=== PATIENT | male | born 1965 | race Caucasian/White ===

== ENCOUNTER 2018-04-04 05:34 | Outpatient (CLI) | payer OTHER ==
[~2018-04-04] VITALS: Ht 175.3 cm; Wt 107.5 kg
[2018-04-04] MEDS ORDERED: ATEN50TA PO (15:03)
[2018-04-04] MEDS ORDERED: BENA40TA5 PO (15:10)
== END 2018-04-04 15:11 | disposition home or self-care (01) ==
LOC: PREOP 05:34
PROVIDERS: ATTEND Surgery
DX: Z01.818 Encounter for other preprocedural examination (principal)

== ENCOUNTER 2018-04-11 07:38 | Day surgery (SDC) | payer OTHER ==
[~2018-04-11] VITALS: Ht 175.3 cm; Wt 107.5 kg
[~2018-04-11 07:38] MED LIST: ATEN50TA PO; BENA40TA5 PO
[2018-04-11] MEDS ORDERED: NS IV 500 ML 500 ML ONE (07:48)
[2018-04-11 07:50] VITALS: BP 147/78
[2018-04-11] MEDS ORDERED: NS IV 500 ML 500 ML IV PRN (07:51)
--- NOTE | 2018-04-11 08:07 | Conscious Sedation/ASA ---
Conscious Sedation Pre-Proced Time Reviewed: 08:07 ASA Class: 2 Airway Mallampati Classification: ([place]hanok appropriate class) I. II. III, IV Lungs Heart ASA score ASA 1: a normal healthy patient ASA 2: a patient with a mild systemic disease (mid diabetes, controlled hypertension, obesity ASA 3: a patient with a severe systemic disease that limits activity (angina , COPD, prior Myocardial infarction) ASA 4: a patient with an incapacitating disease that is a constant threat to life (CHF, renal failure) ASA 5: a moribund patient not expected to survive 24 hrs. (ruptured aneurysm) ASA 6: a declared brain patient whose organs are being harvested. For emergent operations, add the letter E after the classification Grade 1 Sedation Plan: Discussed options with patient/fam Note The patient is an appropriate candidate to undergo the planned procedure, sedation, and anesthesia. The patient immediately re-assessed prior to indication. ONEL AKHTAR MD Apr 11, 2018 8:07 am
--- NOTE | 2018-04-11 08:07 | History & Physicial ---
History of Present Illness History of Present Illness Reason for visit/HPI To undergo screening colonoscopy. F.H of colon cancer and a personal H/O polyps Date of Admission 04/11/18 Date Seen by Provider: Apr 11, 2018 Time Seen by Provider: 08:03 I consulted on this patient on 04/11/18 08:02 Attending Physician Onel Crook MD Admitting Physician Casey Wills MD Consult Allergies and Home Medications Allergies Coded Allergies: No Known Drug Allergies (Unverified , 02/23/11) Home Medications Atenolol 50 Mg Tablet, 75 MG PO DAILY, (Reported) take 1 1/2 of 50mg tab Benazepril HCl 40 Mg Tab, 40 MG PO DAILY, (Reported) Patient Home Medication List Home Medication List Reviewed: Yes Past Qydkorx-Ddwqis-Okhedb Hx Patient Social History Marrital Status: Employed/Student: employed Type Used: Cigarettes Recent Foreign Travel: No Contact w/other who traveled: No Recent Hopitalizations: No Seasonal Allergies Seasonal Allergies: Yes (at times) Surgeries No Respiratory No Cardiovascular Yes Hypertension Neurological No Genitourinary No Gastrointestinal No Musculoskeletal No Endocrine History of Endocrine Disorders: No HEENT History of HEENT Disorders: No Cancer No Psychosocial History of Psychiatric Problem: No Reviewed Nursing Assessment Reviewed/Agree w Nursing PMH: Yes Family Medical History Significant Family History: Cancer Constitutional: no symptoms reported EENTM: no symptoms reported Respiratory: no symptoms reported Cardiovascular: no symptoms reported Gastrointestinal: no symptoms reported Genitourinary: no symptoms reported Musculoskeletal: no symptoms reported Skin: no symptoms reported Psychiatric/Neurological: No Symptoms Reported Physical Exam Vital Signs Capillary Refill : Height, Weight, BMI Height: 5'9.00" Weight: 237lbs. 0.0oz. [id number]; 35.0 BMI Method: General Appearance: No Apparent Distress Neck: Normal Inspection Respiratory: Lungs Clear Cardiovascular: Regular Rate, Rhythm Gastrointestinal: Non Tender, Soft Rectal: Deferred Extremity: Normal Inspection Neurologic/Psychiatric: Alert, Oriented x3 Skin: Warm/Dry Assessment/Plan Assessment and Plan Gentleman to undergo screening colonoscopy Admission Diagnosis Admission Status: Other (Outpt Proc) ONEL CROOK MD Apr 11, 2018 8:07 am
[2018-04-11] MEDS ORDERED: fentaNYL INJECTION 100 MCG/2 ML AMP ONE ×2 (08:14)
[2018-04-11] MEDS ORDERED: MIDAZOLAM 2 MG/2 ML (VERSED) VIAL ONE ×3 (08:14)
[2018-04-11] MEDS: fentaNYL INJECTION 100 MCG/2 ML AMP IVP PRN ×2 (08:18→08:24)
[2018-04-11] MEDS: MIDAZOLAM 2 MG/2 ML (VERSED) VIAL IVP PRN ×2 (08:20→08:23)
--- NOTE | 2018-04-11 08:34 | Endo Procedure Record ---
Endo Procedure Report Date of Procedure Last Colonoscopy: Yes Apr 11, 2018 Surgeon (s) ONEL AKHTAR MD Post Procedure/Op Diagnosis sigmoid diverticulosis Procedure Performed colonoscopy to cecum Description of Procedure Anesthesia Type: Conscious Sedation Specimen(s) collected/removed none Description of the Procedure Indication for the procedure: This gentleman, with a family history of colon cancer and a personal history of polyps in the past, came in for screening colonoscopy. Informed consent was obtained after reviewing the procedure in detail. Description of procedure: He was placed in left lateral rectus position and his vital signs were monitored. Conscious sedation was achieved using Versed and fentanyl. Digital rectal examination was unremarkable. The colonoscope was then introduced in the rectum and advanced all the way up to the cecum. The scope was then withdrawn slowly and the mucosa examined in a systematic fashion. Finding: Sigmoid diverticulosis. He tolerated the procedure well and was taken back to the nursing area in a stable condition. Impression: Screening colonoscopy. No polyps. Positive family history. Recommend repeating in 5 years. Copy Copies To 1: MISAEL LYNN MD, XAVIER M MD Apr 11, 2018 8:34 am
--- NOTE | 2018-04-11 08:35 | Discharge Inst-Simple/Standard ---
Discharge Inst-Standard Discharge Medications New, Converted or Re-Newed RX: Other Patient Instructions/Follow Up Plan of Care/Instructions/FU: repeat colonoscopy in 5 Activity as Tolerated: Yes Discharge Diet: No Restrictions ONEL AKHTAR MD Apr 11, 2018 8:35 am
[2018-04-11] MEDS ORDERED: OMEG-33 PO (08:40)
[2018-04-11] MEDS ORDERED: CHOL20002 PO (08:40)
[2018-04-11] MEDS ORDERED: CALC200T50 PO (08:42)
[2018-04-11] MEDS ORDERED: VITAMIN B12 INJ (08:42)
[2018-04-11 09:00] VITALS: BP 116/72
[2018-04-11 09:20] VITALS: BP 129/97
[2018-04-11 09:25] VITALS: BP 129/97
== END 2018-04-11 09:25 | disposition home or self-care (01) ==
LOC: ENDO 07:38
PROVIDERS: ATTEND Surgery
DX: Z12.11 Encounter for screening for malignant neoplasm of colon (principal); K57.30 Diverticulosis of large intestine without perforation or abscess without bleeding; I10 Essential (primary) hypertension; Z79.899 Other long term (current) drug therapy

== ENCOUNTER → 2020-03-08 | Outpatient (CLI) | payer OTHER ==
[~2020-03-08] MED LIST changes: +CALC200T50 PO; +CHOL20002 PO; +OMEG-33 PO; +VITAMIN B12 INJ
--- NOTE | 2020-03-08 10:41 | Diagnostic Imaging Report ---
PROCEDURE: MRI lumbar spine. TECHNIQUE: Multiplanar, multisequence MRI of the lumbar spine was performed without contrast. INDICATION: Chronic low back pain. No relevant comparisons. FINDINGS: Lumbar vertebral statures are normal and the alignment is anatomic. No appreciable spondylolysis defect. No marrow edema. The lower thoracic cord, the conus and the nerves of the cauda equina unremarkable. There was no paravertebral mass, hemorrhage or fluid collection. T12-L1: Minimal anterior osteophyte disc material at this level results in no stenosis. L1-L2: There is disc desiccation and mild disc stature loss. Osteophyte disc material is predominantly directed anteriorly with no significant canal, foraminal or recess stenosis. The L2-L3 and the L3-L4 levels and discs were normal with no stenosis. L4-L5: There is hypertrophic facet arthrosis. There is thickening of ligamenta flava. There is bulging desiccated disc material posteriorly indenting the ventral thecal sac and in conjunction with posterior element hypertrophy resulting in tzqe-ap-uklxbeds degree of canal stenosis. There is moderate to severe right and tccy-ej-qyhtwnil left neural foraminal narrowing. L5-S1: Some T2 hyperintense signal along the margins of the bulging disc posteriorly likely annular tearing. There is a mild degree of left and moderate right neural foraminal stenosis. Osteophyte disc material effaces the ventral epidural fat and minimally indents the ventral thecal sac. There is borderline mild degree of canal narrowing. IMPRESSION: 1. Degenerative changes to the discs, endplates and posterior elements result in multilevel stenoses greatest at the right neural foramen L4-L5 but other substantial stenoses listed level by level above. 2. Normal alignment. No acute bony abnormality. Dictated by: Dictated on workstation # [id number]
== END ==
LOC: RAD 07:33
DX: M51.17 Intervertebral disc disorders with radiculopathy, lumbosacral region (principal); M48.07 Spinal stenosis, lumbosacral region; M25.78 Osteophyte, vertebrae; M47.26 Other spondylosis with radiculopathy, lumbar region
CPT/HCPCS: 72148

== ENCOUNTER 2020-04-18 14:20 | Outpatient (RCR) | payer OTHER | END 2020-04-18 16:30 | disposition home or self-care (01) | PROVIDERS: ATTEND Nurse Practitioner Family | DX: M54.16 Radiculopathy, lumbar region (principal); I10 Essential (primary) hypertension ==

== ENCOUNTER 2020-04-23 14:09 | Emergency (ER) | payer OTHER ==
[~2020-04-23] VITALS: Ht 175 cm; Wt 103.0 kg
--- NOTE | 2020-04-23 14:33 | NUR ---
RETURNED TO NURSE STATION AFTER TRIAGE AND HAD A NOTE TO UPDATE PT'S JIMMY. I WENT BACK TO THE ROOM BECAUSE THE PT HAD TOLD ME THAT HE WAS TEXTING HER AND I ASKED IF HE WANTED ME TO CALL HER. PT SAID NO THAT HE WOULD CONTACT HER AFTER THE DR SAW HIM.
[2020-04-23] MEDS ORDERED: fentaNYL INJECTION 100 MCG/2 ML AMP IVP ONE (14:45)
--- NOTE | 2020-04-23 14:48 | ED Trauma-Multisystem ---
General Chief Complaint: Chest Wall Stated Complaint: UPPER ABD/CHEST PAIN;INJURY Nursing Triage Note: PT STATES HE WAS LOADING A ZTR MOWER ON THE BACK OF A FLAT BED TRUCK AND IT ROLLED OVER ON HIM, CC OF RT RIB PAIN, PT [facility] BUT THEY COULDN'T TELL IF ANYTHING WAS BROKE, SUGGESTED A CT SCAN HERE. Source of Information: Patient Exam Limitations: No Limitations History of Present Illness Date Seen by Provider: Apr 23, 2020 Time Seen by Provider: 14:43 Initial Comments To [facility] with c/o ruq abdominal pain after a towel stretcher that he was loading into a truck rolled back onto him. Occurred: Just Prior to Arrival Severity: Moderate Pain/Injury Location: Other (torso) Method of Injury: Direct Blow Modifying Factors: No Movement Loss of Consciousness: No Loss of Consciousness Allergies and Home Medications Allergies Coded Allergies: No Known Drug Allergies (Verified , 04/11/18) Home Medications Atenolol 50 Mg Tablet, 75 MG PO DAILY, (Reported) take 1 1/2 of 50mg tab Benazepril HCl 40 Mg Tab, 40 MG PO DAILY, (Reported) Calcium Citrate 200 Mg Tablet, 200 MG PO DAILY, (Reported) Cholecalciferol (Vitamin D3) 2,000 Unit Capsule, 2,000 UNIT PO DAILY, (Reported) [place]-3/Dha/Epa/Fish Oil 1 Each Capsule, 1 EACH PO DAILY, (Reported) [Vitamin B12] , INJ MONTHLY, (Reported) Patient Home Medication List Home Medication List Reviewed: Yes Review of Systems Review of Systems Constitutional: see HPI Eyes: No Symptoms Reported Ears: No Symptoms Reported Nose: No Symptoms Reported Mouth: No Symptoms Reported Throat: No Symptoms to Report Respiratory: no symptoms reported Cardiovascular: No Symptoms Reported Genitourinary: no symptoms reported Musculoskeletal: no symptoms reported Skin: no symptoms reported Psychiatric/Neurological: No Symptoms Reported Past Plbtena-Dvdxum-Eblwgx Hx Patient Social History Alcohol Use: Occasionally Uses Alcohol Beverage of Choice: Beer Recreational Drug Use: No Smoking Status: Current Someday Smoker Type Used: Pipe Recent Foreign Travel: No Contact w/Someone Who Travel: No Recent Infectious Disease Expo: No Recent Hopitalizations: No Physical Abuse: No Sexual Abuse: No Mistreated: No Fear: No Seasonal Allergies Seasonal Allergies: Yes (at times) Past Medical History Surgeries: Yes (GASTRIC BYPASS) Abdominal Respiratory: No Cardiac: Yes ("LEAKING VALVE") Hypertension Neurological: No Genitourinary: No Gastrointestinal: No Musculoskeletal: Yes Degenerate Disk Disease Endocrine: No HEENT: No Cancer: No Psychosocial: No Integumentary: No Blood Disorders: No Family Medical History Cancer Physical Exam Vital Signs Vital Signs - First Documented 04/23/20 14:16 Temp 36.8 Pulse 55 Resp 20 B/P (MAP) 134/94 (107) Pulse Ox 98 O2 Delivery Room Air Height, Weight, BMI Height: 5'9.00" Weight: 237lbs. 0.0oz. 107.312037fi; 33.00 BMI Method: General Appearance: No Apparent Distress, WD/WN Eyes: Bilateral Eye Normal Inspection, Bilateral Eye PERRL, Bilateral Eye Abnormal EOM Neck: Full Range of Motion, Normal Inspection Cardiovascular: Regular Rate, Rhythm, Normal Peripheral Pulses Respiratory: No Accessory Muscle Use, No Respiratory Distress Gastrointestinal: Normal Bowel Sounds, Soft, Other (tender to palpation right anterior abdomen lower ribs ) Extremity: Normal Capillary Refill, Normal Inspection Neurologic/Psychiatric: Alert, Oriented x3 Angelic Coma Score Best Eye Response ([place]): (4) Open Spontaneously Best Verbal Response ([place]): (5) Oriented Best Motor Response (Angelic): (6) Obeys Commands Angelic Total: 15 Progress/Results/Core Measures Results/Orders Lab Results Laboratory Tests Test 04/23/20 15:00 Range/Units White Blood Count 8.5 4.3-11.0 10^3/uL Red Blood Count 5.17 4.35-5.85 10^6/uL Hemoglobin 14.1 13.3-17.7 G/DL Hematocrit 42 40-54 % Mean Corpuscular Volume 81 80-99 FL Mean Corpuscular Hemoglobin 27 25-34 PG Mean Corpuscular Hemoglobin Concent 34 32-36 G/DL Red Cell Distribution Width 15.4 H 10.0-14.5 % Platelet Count 221 130-400 10^3/uL Mean Platelet Volume 10.4 7.4-10.4 FL Neutrophils (%) (Auto) 82 H 42-75 % Lymphocytes (%) (Auto) 11 L 12-44 % Monocytes (%) (Auto) 6 0-12 % Eosinophils (%) (Auto) 1 0-10 % Basophils (%) (Auto) 0 0-10 % Neutrophils # (Auto) 7.0 1.8-7.8 X 10^3 Lymphocytes # (Auto) 0.9 L 1.0-4.0 X 10^3 Monocytes # (Auto) 0.5 0.0-1.0 X 10^3 Eosinophils # (Auto) 0.1 0.0-0.3 10^3/uL Basophils # (Auto) 0.0 0.0-0.1 10^3/uL Sodium Level 139 135-145 MMOL/L Potassium Level 4.4 3.6-5.0 MMOL/L Chloride Level 108 H 98-107 MMOL/L Carbon Dioxide Level 21 21-32 MMOL/L Anion Gap 10 5-14 MMOL/L Blood Urea Nitrogen 13 7-18 MG/DL Creatinine 0.92 0.60-1.30 MG/DL Estimat Glomerular Filtration Rate > 60 BUN/Creatinine Ratio 14 Glucose Level 98 70-105 MG/DL Calcium Level 8.7 8.5-10.1 MG/DL Corrected Calcium 8.7 8.5-10.1 MG/DL Total Bilirubin 0.5 0.1-1.0 MG/DL Aspartate Amino Transf (AST/SGOT) 21 5-34 U/L Alanine Aminotransferase (ALT/SGPT) 21 0-55 U/L Alkaline Phosphatase 42 40-136 U/L Total Protein 6.4 6.4-8.2 GM/DL Albumin 4.0 3.2-4.5 GM/DL My Orders Orders - SOLANGE OH APRN Cbc With Automated Diff (04/23/20 14:41) Comprehensive Metabolic Panel (04/23/20 14:41) Ed Iv/Invasive Line Start (04/23/20 14:41) Ct Chest/Abdomen/Pelvis W (04/23/20 14:41) Fentanyl Injection (Sublimaze Injection (04/23/20 14:45) Iohexol Injection (Omnipaque 350 Mg/Ml 1 (04/23/20 15:45) Received Contrast (Hold Metformin- Contr (04/23/20 15:45) Sodium Chloride Flush (Catheter Flush Sy (04/23/20 15:45) Ns (Ivpb) (Sodium Chloride 0.9% Ivpb Bag (04/23/20 15:45) Medications Given in ED Current Medications Medications Dose Ordered Sig/Shanique Route Start Time Stop Time Status Last Admin Dose Admin Fentanyl Citrate 50 mcg ONCE ONCE IVP 04/23/20 14:45 04/23/20 14:46 DC 04/23/20 14:57 50 MCG Iohexol 100 ml ONCE ONCE IV 04/23/20 15:45 04/23/20 15:46 DC 04/23/20 16:28 100 ML Sodium Chloride 10 ml NEEDED PRN IV 04/23/20 15:45 04/23/20 16:28 10 ML Sodium Chloride 100 ml ONCE ONCE IV 04/23/20 15:45 04/23/20 15:46 DC 04/23/20 16:28 80 ML Vital Signs/I&O 04/23/20 04/23/20 14:16 14:57 Temp 36.8 36.8 Pulse 55 Resp 20 B/P (MAP) 134/94 (107) Pulse Ox 98 O2 Delivery Room Air Blood Pressure Mean: 107 Departure Impression Primary Impression: Chest wall contusion Qualified Codes: S20.211A - Contusion of right front wall of thorax, initial encounter Disposition: 01 HOME, SELF-CARE Condition: Stable Departure-Patient Inst. Decision time for Depature: 16:57 Referrals: MISAEL LYNN MD (PCP) Primary Care Physician Patient Instructions: RIB CONTUSION Add. Discharge Instructions: 1. Return to Er for any concerns 2. FOllow up with your doctor next week. Pain medication as directed. All discharge instructions reviewed with patient and/or family. Voiced understanding. SOLANGE OH CHEMICAL MANAGER Apr 23, 2020 14:48
[2020-04-23 15:12] LABS: BASOPHILS % (AUTO) 0 % (0-10); EOSINOPHILS # (AUTO) 0.1 10^3/uL (0.0-0.3); EOSINOPHILS % (AUTO) 1 % (0-10); HEMATOCRIT 42 % (40-54); HEMOGLOBIN 14.1 G/DL (13.3-17.7); LYMPHOCYTES # (AUTO) 0.9 X 10^3 (1.0-4.0); LYMPHOCYTES % (AUTO) 11 % (12-44); MEAN CORPUSCULAR HEMOGLOBIN 27 PG (25-34); MEAN CORPUSCULAR HGB CONC 34 G/DL (32-36); MEAN CORPUSCULAR VOLUME 81 FL (80-99); MEAN PLATELET VOLUME 10.4 FL (7.4-10.4); MONOCYTES # (AUTO) 0.5 X 10^3 (0.0-1.0); MONOCYTES % (AUTO) 6 % (0-12); NEUTROPHILS % (AUTO) 82 % (42-75); PLATELET COUNT 221 10^3/uL (130-400); RED CELL DISTRIBUTION WIDTH 15.4 % (10.0-14.5); WHITE BLOOD COUNT 8.5 10^3/uL (4.3-11.0)
[2020-04-23 15:24] LABS: ALANINE AMINOTRANSFERASE 21 U/L (0-55); ALKALINE PHOSPHATASE 42 U/L (40-136); BILIRUBIN,TOTAL 0.5 MG/DL (0.1-1.0); BUN/CREATININE RATIO 14; CALCIUM 8.7 MG/DL (8.5-10.1); CARBON DIOXIDE 21 MMOL/L (21-32); CHLORIDE 108 MMOL/L (98-107); CREATININE SERUM 0.92 MG/DL (0.60-1.30); GFR ESTIMATED > 60; GLUCOSE 98 MG/DL (70-105); POTASSIUM 4.4 MMOL/L (3.6-5.0); SODIUM 139 MMOL/L (135-145); TOTAL PROTEIN 6.4 GM/DL (6.4-8.2)
--- OUTSIDE RECORDS SUMMARY | 2020-04-23 15:43 | XMS REPORT | Continuity of Care Document ---
Author Organization Unknown Address Unknown Phone Unavailable Allergies Active Description Code Type Severity Reaction Onset Reported/Identified Relationship to Patient Clinical Status Yes No Known Drug Allergies [id number] Drug Allergy Unknown N/A 04/11/2018 Medications There is no data. 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/O PERFORATION OR AB 04/11/2018 ONEL AKHTAR MD Ot Z12.11 ENCOUNTER FOR SCREENING FOR MALIGNANT NE 04/11/2018 ONEL AKHTAR MD Ot Z79.899 OTHER [facility] (CURRENT) DRUG THERAPY 04/12/2018 ONEL AKHTAR MD Ot I1 0 ESSENTIAL (PRIMARY) HYPERTENSION 04/12/2018 ONEL AKHTAR MD Ot 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/O PERFORATION OR AB 04/12/2018 ONEL AKHTAR MD Ot Z12.11 ENCOUNTER FOR SCREENING FOR MALIGNANT NE 04/12/2018 ONEL AKHTAR MD Ot Z79.899 OTHER [facility] (CURRENT) DRUG THERAPY 04/12/2018 ONEL AKHTAR MD Ot I1 0 ESSENTIAL (PRIMARY) HYPERTENSION 04/12/2018 ONEL AKHTAR MD Ot 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/O PERFORATION OR AB 04/12/2018 ONEL AKHTAR MD Ot Z12.11 ENCOUNTER FOR SCREENING FOR MALIGNANT NE 04/12/2018 ONEL AKHTAR MD Ot Z79.899 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 03/11/2020 SHANE MARIN, MISAEL Thomason Ot M25.78 OSTEOPHYTE, VERTEBRAE 03/11/2020 MISAEL LYNN MD Ot M47.26 OTHER SPONDYLOSIS WITH RADICULOPATHY, DONNA 03/11/2020 SHANE MARIN, MISAEL Thomason Ot M48.07 SPINAL STENOSIS, LUMBOSACRAL REGION 03/11/2020 SHANE MARIN, MISAEL Thomason Ot M51.17 INTVRT DISC DISORDERS W RADICULOPATHY, L 03/22/2020 SHANE MARIN, MISAEL Thomason Ot M25.78 OSTEOPHYTE, VERTEBRAE 03/22/2020 SHANE MARIN, MISAEL Thomason Ot M47.26 OTHER SPONDYLOSIS WITH RADICULOPATHY, DONNA 03/22/2020 SHANE MARIN, MISAEL Thomason Ot M48.07 SPINAL STENOSIS, LUMBOSACRAL REGION 03/22/2020 SHANE MARIN, MISAEL Thomason Ot M51.17 INTVRT DISC DISORDERS W RADICULOPATHY, L 03/26/2020 IRMA MAHMOOD MOTORCYCLE ASSEMBLER Ot I1 0 ESSENTIAL (PRIMARY) HYPERTENSION 03/26/2020 ELA IRMA M MOTORCYCLE ASSEMBLER Ot M54.16 RADICULOPATHY, LUMBAR REGION 04/03/2020 IRMA MAHMOOD MOTORCYCLE ASSEMBLER Ot I1 0 ESSENTIAL (PRIMARY) HYPERTENSION 04/03/2020 ELA IRMA M MOTORCYCLE ASSEMBLER Ot M54.16 RADICULOPATHY, LUMBAR REGION 04/03/2020 SHERMAN MAHMOODA M MOTORCYCLE ASSEMBLER Ot I1 0 ESSENTIAL (PRIMARY) HYPERTENSION 04/03/2020 ELA IRMA M MOTORCYCLE ASSEMBLER Ot M54.16 RADICULOPATHY, LUMBAR REGION 04/03/2020 ELA IRMA M MOTORCYCLE ASSEMBLER Ot I1 0 ESSENTIAL (PRIMARY) HYPERTENSION 04/03/2020 ELA IRMA M MOTORCYCLE ASSEMBLER Ot M54.16 RADICULOPATHY, LUMBAR REGION Procedures There is no data. Results Test Result Range Complete blood count (CBC) with automate d white blood cell (WBC) differential - 04/23/20 15:00 Blood leukocytes automated count (number/volume) 8.5 10*3/uL 4.3-11.0 Blood erythrocytes automated count (number/volume) 5.17 10*6/uL 4.35-5.85 Venous blood hemoglobin measurement (mass/volume) 14.1 g/dL 13.3-17.7 Blood hematocrit (volume fraction) 42 % 40-54 Automated erythrocyte mean corpuscular volume 81 [ foz_us] 80-99 Automated erythrocyte mean corpuscular h emoglobin (mass per erythrocyte) 27 pg 25-34 Automated erythrocyte mean corpuscular h emoglobin concentration measurement (mass/volume) 34 g/dL 32-36 Automated erythrocyte distribution width ratio 15. 4 % 10.0- 14.5 Automated blood platelet count (count/volume) 221 10*3/uL 130-400 Automated blood platelet mean volume measurement 10.4 [foz_us] 7.4-10.4 Automated blood neutrophils/100 leukocytes 82 % 42-75 Automated blood lymphocytes/100 leukocytes 11 % 12-44 Blood monocytes/100 leukocytes 6 % 0-12 Automated blood eosinophils/100 leukocytes 1 % 0-10 Automated blood basophils/100 leukocytes 0 % 0-10 Blood neutrophils automated count (number/volume) 7.0 10*3 1.8-7.8 Blood lymphocytes automated count (number/volume) 0.9 10*3 1.0-4.0 Blood monocytes automated count (number/volume) 0. 5 10*3 0.0-1.0 Automated eosinophil count 0.1 10*3/uL 0 .0-0.3 Automated blood basophil count (count/volume) 0.0 10*3/uL 0.0-0.1 Comprehensive metabolic panel - 04/23/20 15:00 Serum or plasma sodium measurement (moles/volume) 139 mmol/L 135-145 Serum or plasma potassium measurement (moles/volume) 4.4 mmol/L 3.6-5.0 Serum or plasma chloride measurement (moles/volume) 108 mmol/L 98-107 Carbon dioxide 21 mmol/L 21-32 Serum or plasma anion gap determination (moles/volume) 10 mmol/L 5-14 Serum or plasma urea nitrogen measurement (mass/volume ) 13 mg/dL 7-18 Serum or plasma creatinine measurement (mass/volume) 0.92 mg/dL 0.60-1.30 Serum or plasma urea nitrogen/creatinine mass ratio 14 NRG Serum or plasma creatinine measurement w ith calculation of estimated glomerular filtration rate > NRG Serum or plasma glucose measurement (mass/volume) 98 mg/dL 70-105 Serum or plasma calcium measurement (mass/volume) 8.7 mg/dL 8.5-10.1 Serum or plasma total bilirubin measurement (mass/volu me) 0.5 mg/dL 0.1-1.0 Serum or plasma alkaline phosphatase jarrett surement (enzymatic activity/volume) 42 U/L 40-136 Serum or plasma aspartate aminotransfera se measurement (enzymatic activity/volume) 21 U/L 5-34 Serum or plasma alanine aminotransferase measurement (enzymatic activity/volume) 21 U/L 0-55 Serum or plasma protein measurement (mass/volume) 6.4 g/dL 6.4-8.2 Serum or plasma albumin measurement (mass/volume) 4.0 g/dL 3.2-4.5 CALCIUM CORRECTED 8.7 mg/dL 8.5-10.1 Encounters ACCT No. Visit Date/Time Discharge Status Pt. Type Provider Facility Loc./Unit Complaint [id number] 04/18/2020 14:20:00 020 23:59:59 CLS Outpatient IRMA MAHMOOD APRN [facility] REHAB LUMBAR RADICULOPATHY [id number] 03/08/2020 07:33:00 020 23:59:59 CLS Outpatient MISAEL LYNN MD [facility] RAD RADICULOPATHY [id number] 04/11/2018 07:38:00 018 09:25:00 DIS Outpatient ONEL AKHTAR MD [facility] ENDO SCREENING [id number] 04/04/2018 05:34:00 018 15:11:00 DIS Outpatient ONEL AKHTAR MD [facility] PREOP COLONOSCOPY [id number] 04/23/2020 15:13:00 Document Registration
[2020-04-23] MEDS ORDERED: CATHETER FLUSH 10 ML SYR IV PRN (15:45)
[2020-04-23] MEDS ORDERED: IOHEXOL 350 MG/ML 100 ML (OMNIPAQUE 350) VIAL IV ONE (15:45)
[2020-04-23] MEDS ORDERED: HOLD METFORMIN - RECEIVED CONTRAST 20 ML VIAL IV SCH (15:45)
[2020-04-23] MEDS ORDERED: NS 100 ML (IVPB) BAG IV ONE (15:45)
[2020-04-23] MEDS ORDERED: HYDR-3870 PO (16:58)
--- NOTE | 2020-04-23 17:04 | Diagnostic Imaging Report ---
PROCEDURE: CT chest, abdomen, and pelvis with contrast. TECHNIQUE: Multiple contiguous axial images were obtained through the chest, abdomen, and pelvis after the administration of intravenous contrast. Auto Exposure Controls were utilized during the CT exam to meet ALARA standards for radiation dose reduction. INDICATION: Trauma, flipped over a lawnmower. COMPARISON: No prior studies are available for comparison. FINDINGS: CT chest: No mediastinal hematoma or great vessel injury is identified. No pericardial or pleural fluid is detected. No pulmonary contusion or pneumothorax is detected. Bony structures appear nonacute. IMPRESSION: Unremarkable CT of the chest. CT abdomen and pelvis: No focal liver or splenic laceration is seen. There are postoperative changes of a gastric bypass surgery. The pancreas is unremarkable. No adrenal mass is detected. No renal injury is detected. Aorta is non-aneurysmal. There is a filter within the inferior vena cava. Bowel loops are normal caliber. There is diverticulosis of the sigmoid and descending colon but no evidence of acute diverticulitis. There is no free fluid or evidence of hemoperitoneum. The bladder is decompressed. Prostate is unremarkable. Bony structures are nonacute. IMPRESSION: No evidence of abdominal or pelvic visceral injury. Dictated by: Dictated on workstation # [id number]
[2020-04-23 17:17] VITALS: BP 155/89
== END 2020-04-23 17:17 | disposition home or self-care (01) ==
LOC: EDUNIT# 14:09 → ER 14:12
DX: S20.211A Contusion of right front wall of thorax, initial encounter (principal); I10 Essential (primary) hypertension; R40.2142 Coma scale, eyes open, spontaneous, at arrival to emergency department; R40.2252 Coma scale, best verbal response, oriented, at arrival to emergency department; R40.2362 Coma scale, best motor response, obeys commands, at arrival to emergency department; F17.290 Nicotine dependence, other tobacco product, uncomplicated; W22.8XXA Striking against or struck by other objects, initial encounter
CPT/HCPCS: 36415; 71260; 74177; 80053; 85025

== ENCOUNTER 2023-06-23 05:40 | Outpatient (CLI) | payer OTHER ==
[~2023-06-23] VITALS: Ht 175.3 cm; Wt 109.8 kg
[~2023-06-23 05:40] MED LIST changes: -BENA40TA5 PO; +BENA40TA84 PO; +CALC200T22 PO; -CALC200T50 PO; +HYDR-3870 PO
[2023-06-28] MEDS ORDERED: ROSU20TA73 PO (12:10)
[2023-06-28] MEDS ORDERED: ATEN50TA PO (12:10)
== END 2023-06-28 12:21 | disposition home or self-care (01) ==
LOC: PREOP 05:40
PROVIDERS: ATTEND Surgery
DX: Z01.818 Encounter for other preprocedural examination (principal)

== ENCOUNTER 2023-07-06 07:17 | Day surgery (SDC) | payer OTHER ==
[~2023-07-06] VITALS: Ht 175 cm; Wt 109.8 kg
[~2023-07-06 07:17] MED LIST changes: +ROSU20TA73 PO
[2023-07-06] MEDS ORDERED: LACTATED RINGERS 1,000 ML 1,000 ML IV STA (07:23)
[2023-07-06 07:40] VITALS: BP 161/99
--- NOTE | 2023-07-06 08:16 | Progress Note-Pre Operative ---
Pre-Operative Progress Note Date H&P Reviewed: Jul 06, 2023 Time H&P Reviewed: 08:16 History & Physical: H&P Reviewed, Patient Examed, No changes noted Pre-Operative Diagnosis: family history of colon cancer UMAIR MOBLEY DO Jul 06, 2023 08:16
--- NOTE | 2023-07-06 08:56 | Anesthesia-General Post-Op ---
MAC Patient Condition Mental Status/LOC: Same as Preop Cardiovascular: Satisfactory Nausea/Vomiting: Absent Respiratory: Satisfactory Pain: Controlled Complications: Absent Post Op Complications Complications None Follow Up Care/Instructions Patient Instructions None needed. Anesthesiology Discharge Order Discharge Order Patient is doing well, no complaints, stable vital signs, no apparent adverse anesthesia problems. No complications reported per nursing. FARHEEN ERICKSON CRNA Jul 06, 2023 08:56
--- NOTE | 2023-07-06 08:56 | Progress Note-Post Operative ---
Post-Operative Progess Note Surgeon (s)/Silo Worker (s) Surgeon UMAIR MOBLEY DO Silo Worker: n/a Pre-Operative Diagnosis family history of colon cancer Post-Operative Diagnosis Diverticulosis Procedure & Operative Findings Date of Procedure 07/06/23 Procedure Performed/Findings Colonoscopy Anesthesia Type per [employer]IM[employer] EXP[employer]OR [employer] DRIER Estimated Blood Loss Estimated blood loss (mL): none Specimens/Packing Specimens Removed none UMAIR MOBLEY DO Jul 06, 2023 08:56
--- NOTE | 2023-07-06 08:57 | Discharge Inst-Simple/Standard ---
Discharge Inst-Standard Patient Instructions/Follow Up Plan of Care/Instructions/FU: Theresa 5 years, any issues before that, see Theresa at anytime Activity as Tolerated: Yes Discharge Diet: Regular Diet (higher fiber) UMAIR MOBLEY DO Jul 06, 2023 08:57
[2023-07-06 09:00] VITALS: BP 99/63
[2023-07-06 09:05] VITALS: BP 96/58
[2023-07-06 09:32] VITALS: BP 96/58
--- NOTE | 2023-07-06 15:03 | OPERATIVE REPORT ---
DATE OF SERVICE: 07/06/2023 PREOPERATIVE DIAGNOSIS: Family history of colon cancer. POSTOPERATIVE DIAGNOSIS: Diverticulosis. PROCEDURE: Colonoscopy. 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 ESTIMATED BLOOD LOSS: None. COMPLICATIONS: None. INDICATIONS: The patient is a 57-year-old male with family history of colon cancer. He understands risks and benefits of procedure and wished to proceed. Consent was signed in chart. DESCRIPTION OF PROCEDURE: The patient was taken to endoscopy suite, placed in left lateral recumbent position. Timeout was performed. Digital rectal exam was performed. No palpable polyps, masses or ulcerations. He understands risks and benefits and wishes to proceed. Consent was signed in chart. DESCRIPTION OF PROCEDURE: The patient was taken to the endoscopy suite, placed in left lateral recumbent position. Timeout was performed. Digital rectal exam was performed. No palpable polyps, masses or ulcerations. Scope was inserted in the rectum, advanced all the way to the cecum with minimal difficulty. Prep was adequate. Scope was slowly retracted back. No polyps, masses or ulcerations within the cecum, ascending, transverse, descending and sigmoid colon. Minimal diverticulosis present in the left colon. Once in the rectum, scope was retroflexed, noting no other pathology. Scope was returned to its normal position, slowly withdrawn until completely removed. The patient tolerated the procedure well without complications, taken to recovery room in stable condition. RECOMMENDATIONS: The patient will need repeat colonoscopy in 5 years. Any issues before that, be seen at that time. With diverticulosis, recommend high-fiber diet. Job ID: [id number] DocumentID: [id number] Dictated Date: 07/06/2023 08:58:14 Blood Bank Technician Date: 07/06/2023 15:01:00 Dictated By: UMAIR CARDENAS DO
== END 2023-07-06 09:32 | disposition home or self-care (01) ==
LOC: ENDO 07:17
PROVIDERS: ATTEND Surgery
DX: Z12.11 Encounter for screening for malignant neoplasm of colon (principal); K57.30 Diverticulosis of large intestine without perforation or abscess without bleeding; Z80.0 Family history of malignant neoplasm of digestive organs; Z87.891 Personal history of nicotine dependence